=== PATIENT | male | born 1970 | race American Indian/Alaskan Native ===

== ENCOUNTER 2023-04-20 15:27 | Emergency (ER) | payer MEDICAID, OTHER ==
[2023-04-20] MEDS ORDERED: Take Home: Acetaminophen/HYDROcodone 325-5 MG, 5 Tab Pack PO ONE (16:41)
== END 2023-04-20 17:08 | disposition home or self-care (01) ==
LOC: DL.ED 15:27
DX: M23.91 Unspecified internal derangement of right knee (principal); I10 Essential (primary) hypertension; E78.00 Pure hypercholesterolemia, unspecified; I25.10 Atherosclerotic heart disease of native coronary artery without angina pectoris; Z79.82 Long term (current) use of aspirin; I25.2 Old myocardial infarction; Z79.02 Long term (current) use of antithrombotics/antiplatelets; Z79.899 Other long term (current) drug therapy
CPT/HCPCS: 73562-RT; 99283; A9270-GY

== ENCOUNTER 2023-12-27 10:57 | Emergency (ER) | payer OTHER ==
[2023-12-27 11:30] LABS: HEMATOCRIT 41.9 % (40.0-54.0); HEMOGLOBIN 14.1 g/dL (14.0-18.0); MEAN CORPUSCULAR HEMOGLOBIN 32.5 pg (27.0-34.0); MEAN CORPUSCULAR HGB CONC 33.7 g/dL (33.0-35.0); MEAN CORPUSCULAR VOLUME 96.5 fL (80-100); PLATELET COUNT,PLT 437 10^3/uL (150-450); RED BLOOD CELL COUNT 4.34 10^6/uL (4.6-6.2); WHITE BLOOD CELL COUNT,WBC 9.6 10^3/uL (5.0-10.0)
[2023-12-27] MEDS: Sodium Chloride 0.9% 1,000 ML IV ONE (11:32)
[2023-12-27 11:44] LABS: BASOPHILS PERCENT AUTO 0.3 % (0.0-1.0); EOSINOPHILS PERCENT AUTO 2.9 % (1.0-3.0); MONOCYTES PERCENT AUTO 7.8 % (2-8)
[2023-12-27 11:45] LABS: ALANINE AMINOTRANSFERASE,ALT 26 U/L (16-63); ALKALINE PHOSPHATASE 86 U/L (46-116); ANION GAP 13.8 mEq/L (7-13); ASPARTATE AMNIOTRANSFERASE,AST 13 U/L (15-37); BILIRUBIN TOTAL 0.2 mg/dL (0.2-1.0); BLOOD UREA NITROGEN,BUN 7 mg/dL (7-18); CALCIUM 8.9 mg/dL (8.5-10.1); CARBON DIOXIDE,CO2 25 mmol/L (21-32); CHLORIDE,CL 104 mmol/L (98-107); CREATININE 0.78 mg/dL (0.70-1.30); EST CRCL DRUG DOSING (CG) 107.01 mL/min; GLUCOSE RANDOM 127 mg/dL (70-99); MAGNESIUM 1.7 mg/dL (1.8-2.4); POTASSIUM,K 3.8 mmol/L (3.5-5.1); PROTEIN TOTAL,TP 6.3 g/dL (6.4-8.2); SODIUM,NA 139 mmol/L (136-145)
[2023-12-27 11:46] LABS: A/G RATIO 0.91; ESTIMATED GFR 105 mL/min (>=60); ETHANOL BLOOD MEDICAL < 3 mg/dL (0)
[2023-12-27 12:21] LABS: BAND PERCENT MAN 3 %; EOSINOPHILS PERCENT MAN 2 % (1-3); LYMPHOCYTES PERCENT MAN 6 % (20-50); MONOCYTES PERCENT MAN 9 % (2-8); SEG NEUTROPHILS PERCENT MAN 80 % (42-75)
[2023-12-27 12:30] LABS: APPEARANCE,URINE CLEAR (CLEAR); BILIRUBIN,URINE NEGATIVE (NEGATIVE); COLOR,URINE YELLOW (YELLOW); GLUCOSE,URINE NEGATIVE (NEGATIVE); KETONES,URINE NEGATIVE (NEGATIVE); LEUKOCYTE ESTERASE,URINE NEGATIVE (NEGATIVE); NITRITE,URINE NEGATIVE (NEGATIVE); OCCULT BLOOD,URINE NEGATIVE (NEGATIVE); PROTEIN,URINE 30 (NEGATIVE); UROBILINOGEN,URINE 0.2 mg/dL (0.2-1.0)
[2023-12-27] MEDS: Magnesium Sulfate/Water 2 GM in Premix Bag 1 BAG IV ONE (12:30)
[2023-12-27] MEDS: Phenytoin 100 MG Cap.ER PO ONE (12:30)
[2023-12-27 12:33] LABS: BENZODIAZEPINE,URINE NEGATIVE (NEGATIVE); MDMA (ECSTASY), URINE NEGATIVE (NEGATIVE); METHADONE,URINE NEGATIVE (NEGATIVE); METHAMPHETAMINES,URINE NEGATIVE (NEGATIVE); OPIATES,URINE NEGATIVE (NEGATIVE); TCA,URINE NEGATIVE (NEGATIVE)
[2023-12-27 12:34] LABS: AMPHETAMINES,URINE NEGATIVE (NEGATIVE); BARBITURATES,URINE POSITIVE (NEGATIVE); OXYCODONE,URINE NEGATIVE (NEGATIVE); PHENCYCLIDINE,URINE NEGATIVE (NEGATIVE)
[2023-12-27 12:40] LABS: BACTERIA,URINE RARE /HPF (0-FEW/HPF); EPITHELIAL CELLS,URINE OCCASIONAL /HPF (NOT SEEN); MUCUS,URINE RARE /LPF (NOT SEEN); RBC,URINE NOT SEEN /HPF (0-5); WBC,URINE NOT SEEN /HPF (0-5/HPF)
== END 2023-12-27 14:00 | disposition home or self-care (01) ==
LOC: DL.ED 10:57
DX: R56.9 Unspecified convulsions (principal); F17.210 Nicotine dependence, cigarettes, uncomplicated; Z79.82 Long term (current) use of aspirin; Z79.899 Other long term (current) drug therapy
CPT/HCPCS: 36415; 80053; 80185; 80305; 80307; 81001; 83735; 84484; 85025; 93005; 96361; 96365; 99284; A9270; J3475; J7030; 93010

== ENCOUNTER 2024-03-16 22:05 | Emergency (ER) | payer OTHER ==
[~2024-03-16 22:05] MED LIST: Sodium Chloride 0.9% 10 ML Syringe FLUSH PRN
[2024-03-16] MEDS ORDERED: Nitroglycerin 2% Oint 1 GM UD Packet TOP ONE (22:12)
[2024-03-16 22:14] LABS: HEMATOCRIT 44.1 % (40.0-54.0); HEMOGLOBIN 15.1 g/dL (14.0-18.0); MEAN CORPUSCULAR HEMOGLOBIN 33.1 pg (27.0-34.0); MEAN CORPUSCULAR HGB CONC 34.2 g/dL (33.0-35.0); MEAN CORPUSCULAR VOLUME 96.7 fL (80-100); PLATELET COUNT,PLT 277 10^3/uL (150-450); RED BLOOD CELL COUNT 4.56 10^6/uL (4.6-6.2)
[2024-03-16] MEDS ORDERED: Naloxone 2 MG/2 ML Syringe IVPUSH PRN (22:14)
[2024-03-16 22:17] LABS: BASOPHILS PERCENT AUTO 0.9 % (0.0-1.0); EOSINOPHILS PERCENT AUTO 7.1 % (1.0-3.0); LYMPHOCYTES PERCENT AUTO 23.3 % (20.5-50.1); MONOCYTES PERCENT AUTO 10.5 % (2-8); NEUTROPHILS PERCENT AUTO 58.2 % (42.2-75.2)
[2024-03-16] MEDS: Sodium Chloride 0.9% 1,000 ML IV ONE (22:17)
[2024-03-16] MEDS: Aspirin 81 MG Tab.Chew PO ONE (22:18)
[2024-03-16] MEDS: Morphine 2 MG/ML SYRINGE IVPUSH ONE (22:22)
[2024-03-16 22:33] LABS: B-TYPE NATRIURETIC PEPTIDE,BNP 25 pg/ml (0-100)
[2024-03-16 22:38] LABS: A/G RATIO 1.3; ALANINE AMINOTRANSFERASE,ALT 15 U/L (16-63); ALBUMIN 3.8 g/dL (3.4-5.0); ALKALINE PHOSPHATASE 87 U/L (46-116); ASPARTATE AMNIOTRANSFERASE,AST 10 U/L (15-37); BILIRUBIN TOTAL 0.2 mg/dL (0.2-1.0); BLOOD UREA NITROGEN,BUN 14 mg/dL (7-18); BUN/CREATININE RATIO 17.5 (No establ ref range); CALCIUM 9.3 mg/dL (8.5-10.1); CARBON DIOXIDE,CO2 29 mmol/L (21-32); CHLORIDE,CL 104 mmol/L (98-107); CREATINE KINASE,CK 110 U/L (39-308); GLUCOSE RANDOM 101 mg/dL (70-99); LIPASE 20 U/L (16-77); PROTEIN TOTAL,TP 6.8 g/dL (6.4-8.2); SODIUM,NA 140 mmol/L (136-145)
[2024-03-16 22:42] LABS: BAND PERCENT MAN 1 %; ESTIMATED GFR 105 mL/min (>=60); LYMPHOCYTES PERCENT MAN 23 % (20-50); MONOCYTES PERCENT MAN 9 % (2-8); PROTHROMBIN TIME 10.3 SEC (9.0-12.0); PTT,PARTIAL THROMBOPLSTIN TIME 25.9 SEC (22.0-34.0); SEG NEUTROPHILS PERCENT MAN 58 % (42-75)
[2024-03-16 22:43] LABS: EOSINOPHILS PERCENT MAN 9 % (1-3)
[2024-03-16] MEDS ORDERED: GI Cocktail Oral Solution 30 ML PO ONE (22:51)
== END 2024-03-17 06:35 | disposition home or self-care (01) ==
LOC: DL.ED 22:05
DX: R07.89 Other chest pain (principal); Z79.82 Long term (current) use of aspirin; Z79.899 Other long term (current) drug therapy
CPT/HCPCS: 36415; 71045; 80053; 82550; 83690; 83735; 83880; 84484; 85025; 85379; 85610; 85651; 85730; 86140; 93005; 93010; 96361; 96374; 99284; 99285; J2270; J7030

== ENCOUNTER 2024-05-31 15:47 | Emergency (ER) | payer MEDICAID | END 2024-05-31 17:36 | disposition home or self-care (01) | LOC: DL.ED 15:47 | DX: M79.605 Pain in left leg (principal); Z79.82 Long term (current) use of aspirin; Z79.899 Other long term (current) drug therapy | CPT/HCPCS: 93971; 99283; 99284 ==